=== PATIENT | female | born 1975 | race African-American/Black ===

== ENCOUNTER 2019-09-16 02:29 | Emergency (ER) | payer OTHER ==
[~2019-09-16] VITALS: Ht 165.1 cm; Wt 47.6 kg
[2019-09-16] MEDS ORDERED: ASA81BEC PO (02:35)
[2019-09-16] MEDS ORDERED: AMOXICILLIN 50500 M1 PO (02:47)
[2019-09-16 03:04] VITALS: BP 114/76
== END 2019-09-16 03:06 | disposition home or self-care (01) ==
LOC: ER 02:29
DX: K08.89 Other specified disorders of teeth and supporting structures (principal); F17.210 Nicotine dependence, cigarettes, uncomplicated; Z98.890 Other specified postprocedural states; Z79.82 Long term (current) use of aspirin